=== PATIENT | female | born 1995 | race Two or more races ===

== ENCOUNTER 2024-02-27 17:35 | Emergency (ER) | payer MEDICAID ==
[~2024-02-27] VITALS: Ht 149.9 cm; Wt 40.9 kg
[2024-02-27] MEDS: ONDANSETRON HCL 4 MG/2 ML VIAL IV ONE (18:46)
[2024-02-27] MEDS: MORPHINE SULFATE 4 MG/ML SYR/VIAL IV ONE (18:46)
[2024-02-27 18:50] VITALS: PULSE 81; RESP 14; O2SAT 98
[2024-02-27] MEDS ORDERED: IBU600T PO (20:06)
[2024-02-27 20:34] VITALS: BP 108/67; PULSE 84; RESP 16; TEMP 97.6; O2SAT 100
== END 2024-02-27 20:33 | disposition home or self-care (01) ==
LOC: ER 17:35 → EDBD 17:35 → ER 20:33
DX: S00.83XA Contusion of other part of head, initial encounter (principal); Z98.890 Other specified postprocedural states; Y04.2XXA Assault by strike against or bumped into by another person, initial encounter; Y93.89 Activity, other specified; Y92.89 Other specified places as the place of occurrence of the external cause; Y99.8 Other external cause status
CPT/HCPCS: 70450; 96374; 96375; 99285; J2270; J2405